=== PATIENT | female | born 1955 | race Caucasian/White ===

== ENCOUNTER → 2022-06-19 14:36 | Outpatient (CLI) | payer MEDICARE, SELFPAY ==
--- NOTE | 2022-06-19 14:41 | CA_ITS ---
FINAL REPORT TECHNIQUE: Color Doppler, duplex Doppler and brennan scale sonography of the bilateral neck arterial vasculature was performed. Velocities were measured in the carotid arteries. Stenosis evaluation based on the validated velocity criteria. CLINICAL HISTORY: BRUITCAD,HTN,SMOKER,HLD FINDINGS: The peak systolic velocity of the right common carotid artery is 104 cm/s. The peak systolic velocity of the right internal carotid artery is 246 cm/s and end diastolic velocity 84 cm/s. The ICA/CCA ratio is 1.8. A moderate amount of plaque is present. The right external carotid artery is patent. The right vertebral artery is patent with antegrade flow. The peak systolic velocity of the left common carotid artery is 74 cm/s. The peak systolic velocity of the left internal carotid artery is 121 cm/s and end diastolic velocity 38 cm/s. The ICA/CCA ratio is 1.7. A moderate amount of plaque is present. The left external carotid artery is patent.The left vertebral artery is patent with antegrade flow. IMPRESSION: 70-90% carotid stenosis on the right. Less than 50% carotid stenosis on the left. Correlate with CTA or catheter angiogram. Reviewed, Interpreted and Dictated by Elier Perrin III, MD Transcribed by Sivan Santana Authenticated and [facility]
== END ==
LOC: RT 14:39
PROVIDERS: PCP Emergency Medicine; Visit Provider Emergency Medicine
DX: R09.89 Other specified symptoms and signs involving the circulatory and respiratory systems (principal); I35.0 Nonrheumatic aortic (valve) stenosis
CPT/HCPCS: 93306; 93880

== ENCOUNTER → 2022-07-08 23:18 | Outpatient (CLI) | payer MEDICARE, SELFPAY ==
[2022-07-08 19:25] LABS: Amphetamine/Metha Screen,Urine Negative ng/ml (<1000)
[2022-07-08 19:26] LABS: Barbiturates Screen,Urine Negative ng/ml (<200)
[2022-07-08 19:28] LABS: Benzodiazepines Screen,Urine Negative ng/ml (<200)
[2022-07-08 19:29] LABS: Cannabinoid Screen,Urine Negative ng/ml (<50); Cocaine Screen,Urine Negative ng/ml (<300)
[2022-07-08 19:30] LABS: Methadone Screen,Urine Negative ng/ml (<300); Opiate Screen,Urine Positive ng/ml (<300)
[2022-07-08 19:31] LABS: Phencyclidine Screen,Urine Negative ng/ml (<25)
== END ==
PROVIDERS: PCP Emergency Medicine; Visit Provider Emergency Medicine
DX: Z79.899 Other long term (current) drug therapy (principal)
CPT/HCPCS: 80305

== ENCOUNTER → 2022-07-16 12:19 | Outpatient (CLI) | payer MEDICARE, SELFPAY ==
--- NOTE | 2022-07-16 12:48 | CT_ITS ---
FINAL REPORT TECHNIQUE: Thin section axial CT with IV contrast supplemented with multiplanar reconstruction under CT angiogram protocol. This study was performed with techniques to keep radiation doses as low as reasonably achievable (ALARA). Individualized dose reduction techniques using automated exposure control or adjustment of mA and/or kV according to the patient''s size were employed. NASCET criteria was utilized during interpretation. CLINICAL HISTORY: 70-90 % carotid stenosis on Right prior carotid duplex COMPARISON: none FINDINGS: Aortic arch: Arch shows no significant narrowing. Great vessel origins are widely patent. Right carotid: Heavily calcified plaque right carotid artery decreases sensitivity of exam. Mild stenosis of the proximal right common carotid artery, 30-40%. 70-80% stenosis with severe calcifications near the level of the right carotid bulb. More distal right internal carotid artery patent. Left carotid: Approximate 30% stenosis left common carotid artery. Calcified plaque at the left common and proximal internal carotid artery. No significant stenosis left internal carotid artery. Vertebral: Right vertebral artery is dominant. No significant stenosis is present. IMPRESSION: 70-80% stenosis in the region of the right carotid bulb. Mild stenosis bilateral common carotid arteries. Reviewed, Interpreted and Dictated by Elier Perrin III, MD Transcribed by Serene Sadler Authenticated and [facility]
[2022-07-16 12:57] LABS: Blood Urea Nitrogen 13 mg/dl (7-17); Estimated Glomerular Filt Rate 38 ml/min (>60); GFR (African American) 46 ML/MIN (>60)
== END ==
PROVIDERS: PCP Emergency Medicine; Visit Provider Emergency Medicine
DX: I65.21 Occlusion and stenosis of right carotid artery (principal)
CPT/HCPCS: 36415; 70498; 82565; 84520; Q9967

== ENCOUNTER → 2022-09-03 14:45 | Outpatient (CLI) | payer MEDICARE, SELFPAY ==
[2022-09-03 18:47] LABS: Alanine Aminotransferase 16 U/L (12-78); Albumin Level 4.1 g/dl (3.5-5.0); Albumin/Globulin Ratio 1.5 (1.1-1.8); Alkaline Phosphatase 147 U/L (38-126); Anion Gap 14.5 mEq/L (5-15); Aspartate Amino Transferase 24 U/L (14-36); Bilirubin,Total 0.3 mg/dl (0.2-1.3); Blood Urea Nitrogen 18 mg/dl (7-17); Carbon Dioxide 21 mmol/L (22.0-30.0); Chloride 107 mmol/L (98-107); Cholesterol 133 mg/dl (140-200); Estimated Glomerular Filt Rate 38 ml/min (>60); GFR (African American) 46 ML/MIN (>60); Globulin 2.7 g/dL (1.3-3.2); Glucose 143 mg/dl (74-100); HDL Cholesterol 44 mg/dl (40-60); Potassium 3.5 mmoL/L (3.5-5.1); Sodium 139 mmol/L (136-145); Total Protein,Serum 6.8 g/dl (6.3-8.2); Triglycerides 262 mg/dl (30-150); VLDL Cholesterol 52 mg/dL (0-40)
[2022-09-03 18:57] LABS: Direct LDL Cholesterol 37.28 mg/dL (100-129)
[2022-09-03 19:03] LABS: Free T4 (Free Thyroxine) 1.19 ng/dl (0.78-2.19)
[2022-09-03 19:04] LABS: 25-OH Vitamin D, Total 18.2 ng/mL (30-100)
[2022-09-03 19:17] LABS: Thyroid Stimulating Hormone 0.05 uIU/mL (0.465-4.68)
[2022-09-03 19:18] LABS: Basophils % 0.4 % (0.1-2.0); Eosinophils # 0.1 K/mm3 (0.0-0.4); Eosinophils % 1.6 % (0.1-12.0); Hematocrit 40.9 % (37.0-47.0); Hemoglobin 12.9 g/dL (12.2-16.2); Lymphocytes # 1.7 K/mm3 (0.7-4.5); Lymphocytes % 26.8 % (10-50); Mean Corpuscular HGB Conc 31.5 g/dL (31.8-35.4); Mean Corpuscular Hemoglobin 31.1 pg (27.0-31.2); Mean Corpuscular Volume 98.6 fl (81-99); Monocytes # 0.4 K/mm3 (0.1-1.0); Monocytes % 5.7 % (1.7-9.3); Neutrophils # 4.2 K/mm3 (1.8-7.8); Neutrophils % 65.4 % (37.0-80.0); Platelet Count 266 K/mm3 (142-424); Red Blood Count 4.15 M/mm3 (4.20-5.40); Red Cell Distribution Width 13.8 % (11.5-17.5); White Blood Count 6.4 K/mm3 (4.8-10.8)
[2022-09-03 19:28] LABS: Amphetamine/Metha Screen,Urine Negative ng/ml (<1000)
[2022-09-03 19:29] LABS: Cannabinoid Screen,Urine Negative ng/ml (<50)
[2022-09-03 19:30] LABS: Barbiturates Screen,Urine Negative ng/ml (<200)
[2022-09-03 19:31] LABS: Benzodiazepines Screen,Urine Positive ng/ml (<200); Cocaine Screen,Urine Negative ng/ml (<300)
[2022-09-03 19:32] LABS: Methadone Screen,Urine Negative ng/ml (<300)
[2022-09-03 19:33] LABS: Opiate Screen,Urine Positive ng/ml (<300)
[2022-09-03 19:34] LABS: Phencyclidine Screen,Urine Negative ng/ml (<25)
== END ==
PROVIDERS: PCP Emergency Medicine; Visit Provider Emergency Medicine
DX: I25.10 Atherosclerotic heart disease of native coronary artery without angina pectoris (principal); R09.89 Other specified symptoms and signs involving the circulatory and respiratory systems; E55.9 Vitamin D deficiency, unspecified; M54.16 Radiculopathy, lumbar region
CPT/HCPCS: 80053; 80061; 80305; 82306; 84439; 84443; 85025

== ENCOUNTER → 2023-01-20 09:08 | Outpatient (CLI) | payer MEDICARE, SELFPAY ==
[2023-01-20 19:05] LABS: Basophils # 0.1 K/mm3 (0-0.2); Basophils % 0.8 % (0.1-2.0); Eosinophils # 0.2 K/mm3 (0.0-0.4); Eosinophils % 2.3 % (0.1-12.0); Hematocrit 43.2 % (37.0-47.0); Lymphocytes # 2.4 K/mm3 (0.7-4.5); Lymphocytes % 33.1 % (10-50); Mean Corpuscular HGB Conc 32.5 g/dL (31.8-35.4); Mean Corpuscular Hemoglobin 33.5 pg (27.0-31.2); Monocytes # 0.5 K/mm3 (0.1-1.0); Monocytes % 6.5 % (1.7-9.3); Neutrophils # 4.1 K/mm3 (1.8-7.8); Neutrophils % 57.3 % (37.0-80.0); Platelet Count 295 K/mm3 (142-424); Red Blood Count 4.19 M/mm3 (4.20-5.40); Red Cell Distribution Width 14.1 % (11.5-17.5); White Blood Count 7.2 K/mm3 (4.8-10.8)
[2023-01-20 20:23] LABS: Alanine Aminotransferase 14 U/L (12-78); Albumin Level 4.7 g/dl (3.5-5.0); Albumin/Globulin Ratio 1.4 (1.1-1.8); Alkaline Phosphatase 189 U/L (38-126); Anion Gap 14.9 mEq/L (5-15); Aspartate Amino Transferase 25 U/L (14-36); Bilirubin,Total 0.4 mg/dl (0.2-1.3); Blood Urea Nitrogen 17 mg/dl (7-17); Calcium 9.4 mg/dl (8.4-10.2); Carbon Dioxide 28 mmol/L (22.0-30.0); Chloride 96 mmol/L (98-107); Estimated Glomerular Filt Rate 41 ml/min (>60); GFR (African American) 50 ML/MIN (>60); Globulin 3.4 g/dL (1.3-3.2); Glucose 92 mg/dl (74-100); HDL Cholesterol 54 mg/dl (40-60); Potassium 3.9 mmoL/L (3.5-5.1); Sodium 135 mmol/L (136-145); Total Protein,Serum 8.1 g/dl (6.3-8.2)
[2023-01-20 20:34] LABS: Chol/HDL Ratio 7.5 (1-3.5); Cholesterol 403 mg/dl (140-200); Direct LDL Cholesterol 161.48 mg/dL (100-129); Triglycerides 479 mg/dl (30-150)
[2023-01-20 20:43] LABS: T4 (Thyroxine) 7.7 ug/dl (5.53-11.0)
[2023-01-20 22:39] LABS: Amphetamine/Metha Screen,Urine Negative ng/ml (<1000); Benzodiazepines Screen,Urine Positive ng/ml (<200)
[2023-01-20 22:40] LABS: Barbiturates Screen,Urine Negative ng/ml (<200); Cannabinoid Screen,Urine Negative ng/ml (<50)
[2023-01-20 22:41] LABS: Cocaine Screen,Urine Negative ng/ml (<300)
[2023-01-20 22:42] LABS: Methadone Screen,Urine Negative ng/ml (<300); Opiate Screen,Urine Positive ng/ml (<300)
[2023-01-20 22:43] LABS: Phencyclidine Screen,Urine Negative ng/ml (<25)
[2023-01-20 23:04] LABS: Creatinine,Urine Random 90 mg/dL (Not Estab.); Microalbumin < 6.000 mg/L (0-16.7)
== END ==
LOC: LAB.DROPOF 01-21 09:09
PROVIDERS: PCP Internal Medicine; Visit Provider Internal Medicine
DX: J44.9 Chronic obstructive pulmonary disease, unspecified (principal); R09.89 Other specified symptoms and signs involving the circulatory and respiratory systems; M54.16 Radiculopathy, lumbar region; I25.10 Atherosclerotic heart disease of native coronary artery without angina pectoris; Z79.899 Other long term (current) drug therapy
CPT/HCPCS: 80053; 80061; 80307; 82043; 82570; 84436; 85025

== ENCOUNTER → 2023-02-03 23:00 | Outpatient (CLI) | payer MEDICARE, SELFPAY ==
[2023-02-03 19:07] LABS: HDL Cholesterol 44 mg/dl (40-60)
[2023-02-03 19:21] LABS: Direct LDL Cholesterol 133.81 mg/dL (100-129)
[2023-02-03 19:30] LABS: Chol/HDL Ratio 9.8 (1-3.5); Cholesterol 429 mg/dl (140-200); Triglycerides 886 mg/dl (30-150)
== END ==
PROVIDERS: PCP Internal Medicine; Visit Provider Internal Medicine
DX: I25.10 Atherosclerotic heart disease of native coronary artery without angina pectoris (principal)
CPT/HCPCS: 80061

== ENCOUNTER → 2023-02-20 09:14 | Outpatient (CLI) | payer MEDICARE, SELFPAY ==
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
[2023-02-20] MEDS: SODIUM CHLORIDE 0.9% 10ML SYR (RAD ONLY) 10 ML IV (11:47)
[2023-02-20] MEDS: GADOTERIDOL INJ 17ML SYRINGE 10 ML IV (11:47)
== END ==
LOC: RAD 09:14
PROVIDERS: PCP Internal Medicine; Visit Provider Internal Medicine
DX: M54.16 Radiculopathy, lumbar region (principal); M81.0 Age-related osteoporosis without current pathological fracture; V89.2XXA Person injured in unspecified motor-vehicle accident, traffic, initial encounter; M54.50 Low back pain, unspecified
CPT/HCPCS: 72158; 76376; 77080; A9576

== ENCOUNTER 2023-03-04 07:11 | Outpatient (CLI) | payer MEDICARE, SELFPAY ==
[2023-03-04 21:54] LABS: Amphetamine/Metha Screen,Urine Negative ng/ml (<1000); Barbiturates Screen,Urine Negative ng/ml (<200); Benzodiazepines Screen,Urine Negative ng/ml (<200); Cannabinoid Screen,Urine Negative ng/ml (<50); Cocaine Screen,Urine Negative ng/ml (<300); Methadone Screen,Urine Negative ng/ml (<300); Opiate Screen,Urine Negative ng/ml (<300); Phencyclidine Screen,Urine Negative ng/ml (<25)
[2023-03-10 06:04] LABS: Alprazolam Negative (Cutoff=100); Benzodiazepines Positive ng/mL (Cutoff=100); Clonazepam Positive (.); Clonazepam Confirm 151 ng/mL (Cutoff=100); Flurazepam Negative (Cutoff=100); Lorazepam Negative (Cutoff=100); Midazolam Negative (Cutoff=100); Opiates Negative (Cutoff=100); Oxycodone (GC/MS) 1333 ng/mL (Cutoff=100); Oxymorphone (GC/MS) 205 ng/mL (Cutoff=100); Temazepam Negative (Cutoff=100); Triazolam Negative (Cutoff=100)
== END 2023-03-04 23:59 ==
LOC: LAB.DROPOF 03-05 07:11
PROVIDERS: PCP Internal Medicine; Visit Provider Family Medicine
DX: Z79.899 Other long term (current) drug therapy (principal)
CPT/HCPCS: 80307; 80346; 80361; 80365; G0480

== ENCOUNTER 2023-03-19 13:40 | Outpatient (CLI) | payer MEDICARE, SELFPAY ==
--- NOTE | 2023-03-19 13:41 | MR_ITS ---
FINAL REPORT CLINICAL HISTORY: CONVULSIONS COMPARISON: None FINDINGS: Multiplanar MR imaging of the brain was performed without contrast age-appropriate atrophy is present. There is no evidence of intracranial hemorrhage or mass. The ventricular size is normal. There is no evidence of shift of the midline structures. No abnormal extra-axial fluid collection is identified. The posterior fossa and brainstem have an unremarkable appearance. No area of abnormal restricted diffusion is identified. Normal major vessel vascular flow voids are seen. IMPRESSION: Age-appropriate atrophy, otherwise unremarkable MRI of the head. Reviewed, Interpreted and Dictated by Elier Perrin III, MD Transcribed by Valorie Kumar Authenticated and [facility]
[2023-03-19 14:00] LABS: Blood Urea Nitrogen 23 mg/dl (7-17); Estimated Glomerular Filt Rate 30 ml/min (>60); GFR (African American) 36 ML/MIN (>60)
== END 2023-03-19 23:59 ==
LOC: RAD 13:41
PROVIDERS: PCP Internal Medicine; Visit Provider Specialist
DX: R56.9 Unspecified convulsions (principal)
CPT/HCPCS: 36415; 70551; 82565; 84520

== ENCOUNTER 2023-04-30 22:16 | Outpatient (CLI) | payer MEDICARE, SELFPAY ==
[2023-04-30 19:03] LABS: Basophils # 0.1 K/mm3 (0-0.2); Basophils % 1.2 % (0.1-2.0); Eosinophils # 0.1 K/mm3 (0.0-0.4); Eosinophils % 0.9 % (0.1-12.0); Hemoglobin 15.5 g/dL (12.2-16.2); Lymphocytes # 1.9 K/mm3 (0.7-4.5); Lymphocytes % 20.3 % (10-50); Mean Corpuscular HGB Conc 31.6 g/dL (31.8-35.4); Mean Corpuscular Hemoglobin 32.5 pg (27.0-31.2); Mean Corpuscular Volume 102.8 fl (81-99); Mean Platelet Volume 8.7 fl (7.4-10.4); Monocytes # 0.4 K/mm3 (0.1-1.0); Monocytes % 4.7 % (1.7-9.3); Neutrophils # 6.7 K/mm3 (1.8-7.8); Neutrophils % 72.8 % (37.0-80.0); Platelet Count 300 K/mm3 (142-424); Red Blood Count 4.77 M/mm3 (4.20-5.40); Red Cell Distribution Width 13.9 % (11.5-17.5); White Blood Count 9.2 K/mm3 (4.8-10.8)
[2023-04-30 20:21] LABS: 25-OH Vitamin D, Total 22.4 ng/mL (30-100)
== END 2023-04-30 23:59 ==
LOC: LAB.DROPOF 22:17
PROVIDERS: PCP Internal Medicine; Visit Provider Internal Medicine
DX: R53.83 Other fatigue (principal); E55.9 Vitamin D deficiency, unspecified
CPT/HCPCS: 82306; 85025

== ENCOUNTER 2023-05-25 18:59 | Outpatient (CLI) | payer MEDICARE, SELFPAY ==
[2023-05-25 19:55] LABS: Thyroid Stimulating Hormone 2.69 uIU/mL (0.465-4.68)
== END 2023-05-25 23:59 ==
LOC: LAB.DROPOF 18:59
PROVIDERS: PCP Internal Medicine; Visit Provider Internal Medicine
DX: E05.90 Thyrotoxicosis, unspecified without thyrotoxic crisis or storm (principal)
CPT/HCPCS: 84443